=== PATIENT | male | born 1990 | race African-American/Black ===

== ENCOUNTER 2022-06-05 14:30 | Emergency (ER) | payer MEDICAID ==
[~2022-06-05] VITALS: Ht 182.9 cm; Wt 80.0 kg
[2022-06-05 14:42] VITALS: BP 146/96
[2022-06-05] MEDS ORDERED: ACETAMINOPHEN 325MG TABLET PO STA (16:29)
[2022-06-05] MEDS ORDERED: SODIUM CHLORIDE 0.9% 1,000 ML IV ONE (16:30)
[2022-06-05] MEDS ORDERED: METOCLOPRAMIDE HCL 10MG/2ML VIAL IV ONE (16:30)
[2022-06-05 17:20] LABS: BASOPHILS % 0.6 % (0.0-2.0); EOSINOPHILS % 0.4 % (0.0-5.0); HEMATOCRIT. 41.9 % (42.0-52.0); HEMOGLOBIN. 14.2 g/dL (14.0-18.0); LYMPHOCYTES % 28.2 % (20.0-50.0); MEAN CORPUSCULAR HEMOGLOBIN 32.8 pg (28.0-32.0); MEAN CORPUSCULAR VOLUME 96.6 fL (80.0-94.0); MEAN PLATELET VOLUME 7.9 fl (7.4-10.4); MONOCYTES % 10.3 % (2.0-8.0); NEUTROPHILS % 60.5 % (40.0-76.0); PLATELET 254 x1000/uL (130-400); RED BLOOD CELL COUNT 4.34 mill/uL (4.7-6.1); RED CELL DISTRIBUTION WIDTH 14.3 % (11.6-14.6)
[2022-06-05 17:23] LABS: INR 1.1; PROTHROMBIN TIME 11.4 sec (9.6-11.0)
[2022-06-05 17:26] LABS: CHLORIDE 109 mEq/L (98-107)
== END 2022-06-05 19:24 | disposition home or self-care (01) ==
LOC: ER 14:30
DX: R51.9 Headache, unspecified (principal)
CPT/HCPCS: 36415; 70450; 72125; 80053; 85025; 85610; 99284; J2765; J7030